=== PATIENT | male | born 1950 | race Caucasian/White ===

== ENCOUNTER 2024-01-16 09:01 | Inpatient (IN) | payer MEDICARE, MEDICAID ==
[~2024-01-16] VITALS: Ht 172.7 cm; Wt 74.4 kg
[2024-01-16] VITALS (23 sets, daily range): BP systolic 100–135; BP diastolic 65–83; PULSE 63–77; RESP 11–23; TEMP 36.974–37.16964; O2SAT 97–99
[2024-01-16 10:12] LABS: CLARITY URINE CLOUDY (CLEAR); COLOR URINE DARK YELLOW (YELLOW); GLUCOSE URINE 2+ (NEGATIVE); KETONES URINE TRACE (NEGATIVE); LEUKOCYTE ESTERASE URINE 2+ (NEGATIVE); NITRITE URINE POSITIVE (NEGATIVE); OCCULT BLOOD URINE 3+ (NEGATIVE); PH URINE 6.5 (4.5-8.0); PROTEIN URINE 2+ (NEGATIVE); SPECIFIC GRAVITY URINE 1.024 (1.005-1.030)
[2024-01-16 10:25] LABS: BACTERIA URINE 1+; RBC URINE 15-25 /hpf (0-2); SQUAMOUS EPITHELIAL CELL URINE NONE SEEN /lpf (RARE/1+); WBC URINE TNTC /hpf (0-2); YEAST URINE NONE SEEN
[2024-01-16] MEDS: ACETAMINOPHEN 325MG TABLET PO ONE (10:27)
[2024-01-16] MEDS: SODIUM CHLORIDE 0.9% 1000ML BAG (SEPSIS BOLUS) IV ONE (10:27)
[2024-01-16] MEDS: CEFTRIAXONE 1GM/50ML 50 ML IV ONE (10:28)
[2024-01-16 10:35] LABS: HEMATOCRIT. 38.2 % (42.0-52.0); HEMOGLOBIN. 13.3 g/dL (14.0-18.0); MEAN CORPUSCULAR HEMOGLOBIN 32.9 pg (28.0-32.0); MEAN CORPUSCULAR HGB CONC 34.7 g/dL (31.0-37.0); MEAN CORPUSCULAR VOLUME 94.7 fL (80.0-94.0); MEAN PLATELET VOLUME 7.4 fl (7.4-10.4); PLATELET 118 x1000/uL (130-400); RED BLOOD CELL COUNT 4.03 mill/uL (4.7-6.1); RED CELL DISTRIBUTION WIDTH 13.4 % (11.6-14.6)
[2024-01-16 10:38] LABS: CHLORIDE 100 mEq/L (98-107); POTASSIUM 3.1 mEq/L (3.5-5.1); SODIUM 134 mEq/L (136-145)
[2024-01-16 10:39] LABS: CALCIUM 9.1 mg/dL (8.7-10.4); CARBON DIOXIDE 25 mEq/L (21-32)
[2024-01-16 10:40] LABS: DIFFERENTIAL COMMENT 1
[2024-01-16 10:44] LABS: GLUCOSE 147 mg/dL (70-105); UREA NITROGEN BLOOD 15 mg/dL (9-23)
[2024-01-16 10:46] LABS: LACTIC ACID 2.4 mmol/L (0.4-2.0)
[2024-01-16 10:59] LABS: INR 1.1; PROTHROMBIN TIME 12.3 sec (9.6-11.0)
[2024-01-16 11:11] LABS: PLATELET ESTIMATE DECREASED
[2024-01-16] MEDS: POTASSIUM CHLORIDE 20MEQ TABLET SR PO ONE (11:50)
[2024-01-16] MEDS ORDERED: ACETAMINOPHEN 325MG TABLET PO PRN ×2 (12:45)
[2024-01-16] MEDS ORDERED: ONDANSETRON HCL 4MG/2ML INJ IV PRN (12:45)
[2024-01-16] MEDS ORDERED: CLONIDINE 0.1MG TABLET PO PRN (12:45)
[2024-01-16] MEDS ORDERED: MAGNESIUM/ALUMINUM HYDROXIDE/SIMETHICONE 30ML UDC PO PRN (12:45)
[2024-01-16] MEDS ORDERED: NITROGLYCERIN 0.4MG TABLET SL SL PRN (12:45)
[2024-01-16] MEDS ORDERED: IPRATROPIUM/ALBUTEROL 0.5-3(2.5)MG/3ML NEB NEB PRN (12:45)
[2024-01-16] MEDS ORDERED: GUAIFENESIN 200MG/10ML SUGAR FREE UDC PO PRN (12:45)
[2024-01-16] MEDS ORDERED: DOCUSATE SODIUM 100MG CAPSULE PO PRN (12:45)
[2024-01-16] MEDS: NOREPINEPHRINE 8MG/250ML PMX 250 ML IV ONE (13:00)
[2024-01-16] MEDS: PIPERACILLIN/TAZO 3.375G/50ML 50 ML IV STA (13:05)
[2024-01-16] MEDS ORDERED: MEROPENEM 1G/100ML 100 ML IV SCH (14:00)
[2024-01-16] MEDS: LACTATED RINGERS 1,400 ML IV ONE (14:00)
[2024-01-16] MEDS: VANCOMYCIN 1.5GM/250ML 250 ML IV SCH (14:33)
[2024-01-16] MEDS: POTASSIUM CHLORIDE 20MEQ TABLET SR PO NR (14:34)
[2024-01-16] MEDS: ZINC SULFATE 220 MG ( 50 ) CAPSULE PO SCH (14:35)
[2024-01-16 14:42] LABS: IRON 18 ug/dL (65-175)
[2024-01-16 14:43] LABS: TRIGLYCERIDE 56 mg/dL (0-150)
[2024-01-16 14:44] LABS: LDL CHOLESTEROL 37 mg/dL (5-100)
[2024-01-16 14:45] LABS: CHOLESTEROL 91 mg/dL (<200); CREATINE KINASE MB FRACTION 2.9 ng/mL (0.5-3.6); HDL CHOLESTEROL 42 mg/dL (>55); TOTAL IRON BINDING CAPACITY 292 ug/dl (250-425)
[2024-01-16 14:46] LABS: CREATINE KINASE 212 IU/L (46-171)
[2024-01-16 14:47] LABS: THYROID STIMULATING HORMONE 0.87 uIU/mL (0.55-4.78)
[2024-01-16 14:48] LABS: T4 FREE 1.18 ng/dL (0.89-1.76); VITAMIN B12 SERUM 1578 pg/mL (211-911)
[2024-01-16 14:49] LABS: *AMPHETAMINES SCREEN URINE NEGATIVE (NEGATIVE); *BARBITURATES SCREEN URINE NEGATIVE (NEGATIVE); *BENZODIAZEPINES SCREEN URINE NEGATIVE (NEGATIVE); *COCAINE SCREEN URINE NEGATIVE (NEGATIVE); METHADONE URINE SCREEN NEGATIVE (NEGATIVE); OPIATES URINE SCREEN NEGATIVE (NEGATIVE)
[2024-01-16 14:50] LABS: CANNABINOID URINE SCREEN NEGATIVE (NEGATIVE); ECSTASY MDMA SCREEN URINE NEGATIVE (NEGATIVE); PHENCYCLIDINE URINE SCREEN NEGATIVE (NEGATIVE)
[2024-01-16 15:09] LABS: TROPONIN I HIGH SENSITIVITY 120 ng/L (3.0-53)
[2024-01-16] MEDS ORDERED: DEXTROSE 50% WATER 50ML SYRINGE IV PRN (15:30)
[2024-01-16] MEDS: BLOOD SUGAR DIAGNOSTIC STRIP TEST SCH (17:00)
[2024-01-16] MEDS: INSULIN LISPRO 100 UNITS/ML SUBCUT SCH (18:20)
[2024-01-16] MEDS: LACTATED RINGERS 1,000 ML IV SCH (20:03)
[2024-01-16] MEDS: ASCORBIC ACID 500 MG TABLET PO SCH (20:05)
[2024-01-16] MEDS: ENOXAPARIN 40MG/0.4ML SYR SUBCUT SCH (20:05)
[2024-01-16] MEDS: ASPIRIN 325MG EC TABLET PO SCH (20:05)
[2024-01-16] MEDS: FAMOTIDINE 20MG TABLET PO SCH (20:05)
[2024-01-16] MEDS: MEROPENEM 1G/100ML 100 ML IV SCH (20:33)
[2024-01-16] MEDS ORDERED: ZOLPIDEM TARTRATE 5MG TABLET PO PRN (21:00)
[2024-01-16 22:36] LABS: CREATINE KINASE MB FRACTION 3.4 ng/mL (0.5-3.6)
[2024-01-17] VITALS (33 sets, daily range): BP systolic 93–131; BP diastolic 58–85; PULSE 54–78; RESP 9–27; TEMP 35.94732–37.11408; O2SAT 95–100
[2024-01-17 05:43] LABS: BASOPHILS % 0.3 % (0.0-2.0); EOSINOPHILS % 0.8 % (0.0-5.0); HEMOGLOBIN. 11.8 g/dL (14.0-18.0); LYMPHOCYTES % 12.8 % (20.0-50.0); MEAN CORPUSCULAR HEMOGLOBIN 32.8 pg (28.0-32.0); MEAN CORPUSCULAR HGB CONC 33.9 g/dL (31.0-37.0); MEAN CORPUSCULAR VOLUME 96.7 fL (80.0-94.0); MEAN PLATELET VOLUME 8.5 fl (7.4-10.4); MONOCYTES % 8.3 % (2.0-8.0); NEUTROPHILS % 77.8 % (40.0-76.0); PLATELET 102 x1000/uL (130-400); RED BLOOD CELL COUNT 3.62 mill/uL (4.7-6.1); RED CELL DISTRIBUTION WIDTH 13.6 % (11.6-14.6); WHITE BLOOD COUNT 7.6 x1000/uL (4.5-11.0)
[2024-01-17 05:52] LABS: CARBON DIOXIDE 24 mEq/L (21-32); CHLORIDE 108 mEq/L (98-107); POTASSIUM 3.8 mEq/L (3.5-5.1); SODIUM 136 mEq/L (136-145)
[2024-01-17 05:53] LABS: CALCIUM 8.6 mg/dL (8.7-10.4)
[2024-01-17 05:57] LABS: CREATININE 0.6 mg/dL (0.6-1.3); GLUCOSE 107 mg/dL (70-105)
[2024-01-17 05:58] LABS: UREA NITROGEN BLOOD 11 mg/dL (9-23)
[2024-01-17 05:59] LABS: ALANINE AMINOTRANSFERASE 26 IU/L (10-49); ASPARTATE AMINOTRANSFERASE 24 IU/L (<34)
[2024-01-17 06:00] LABS: ALBUMIN 3.4 g/dL (3.2-4.8); PHOSPHORUS 1.8 mg/dL (2.5-4.9); PROTEIN TOTAL 5.7 g/dL (6.0-8.3)
[2024-01-17] MEDS ORDERED: IOHEXOL-300 100 ML BOTTLE ONE (06:54)
[2024-01-17] MEDS: MAGNESIUM 2 G PREMIX 50 ML IV NR (09:37)
[2024-01-17] MEDS: VANCOMYCIN 750MG PREMIX 150 ML IV SCH (10:16)
[2024-01-17] MEDS: POTASSIUM PHOSPHATE 20 MMOL in DEXT 5% WATER 243.3333 ML IV NR (11:38)
[2024-01-17] MEDS: TAMSULOSIN HCL 0.4MG SR CAPSULE PO SCH (17:58)
[2024-01-18] VITALS: BP 127/56; PULSE 80; RESP 18; TEMP 37.00296; O2SAT 99
[2024-01-18 04:00] VITALS: BP 140/89; PULSE 66; RESP 17; TEMP 36.78072; O2SAT 100
[2024-01-18] MEDS: KETOROLAC 15MG/ML VIAL IV PRN (04:33)
[2024-01-18 08:10] VITALS: BP 138/85; PULSE 62; RESP 18; TEMP 36.78072; O2SAT 99
[2024-01-18 12:00] VITALS: BP 130/80; PULSE 80; RESP 18; TEMP 36.16956; O2SAT 99
[2024-01-18 16:00] VITALS: BP 139/58; PULSE 72; RESP 20; TEMP 37.16964; O2SAT 97
[2024-01-18 20:00] VITALS: BP 123/86; PULSE 78; RESP 20; TEMP 36.61404; O2SAT 95
[2024-01-19] VITALS: BP 137/79; PULSE 66; RESP 19; TEMP 36.44736; O2SAT 97
[2024-01-19 04:00] VITALS: BP 145/82; PULSE 55; RESP 19; TEMP 36.50292; O2SAT 98
[2024-01-19 08:00] VITALS: BP 130/86; PULSE 60; RESP 18; TEMP 36.50292; O2SAT 99
[2024-01-19 12:00] VITALS: BP 142/87; PULSE 66; RESP 18; TEMP 36.72516; O2SAT 98
[2024-01-19 16:00] VITALS: BP 113/88; PULSE 66; RESP 18; TEMP 36.50292; O2SAT 97
[2024-01-19 20:00] VITALS: BP 112/70; PULSE 64; RESP 16; TEMP 36.6696; O2SAT 95
[2024-01-19] MEDS: CEFAZOLIN 1000MG PREMIX 50 ML IV SCH (20:03)
[2024-01-20] VITALS: BP 133/85; PULSE 66; RESP 18; TEMP 36.44736; O2SAT 99
[2024-01-20 04:00] VITALS: BP 145/86; PULSE 68; RESP 16; TEMP 36.55848; O2SAT 99
[2024-01-20 08:00] VITALS: BP 150/89; PULSE 58; RESP 18; TEMP 36.16956; O2SAT 98
[2024-01-20] MEDS ORDERED: ZINC1CAP2 PO (10:51)
[2024-01-20] MEDS ORDERED: TAMS-11 PO (10:51)
[2024-01-20] MEDS ORDERED: CEPH500T MT (10:51)
[2024-01-20] MEDS ORDERED: ASPI-1406 MT (10:51)
[2024-01-20] MEDS ORDERED: ASCO500T20 PO (10:51)
[2024-01-20 16:00] VITALS: BP 113/87; PULSE 66; RESP 18; TEMP 36.50292; O2SAT 98
[2024-01-20 16:52] VITALS: BP 113/87; PULSE 66; TEMP 97.7; O2SAT 98
== END 2024-01-20 18:22 | disposition home health service (06) | DRG 871 ==
LOC: ER 09:01 → EDBEDREQ 11:20 → EDBEDREQTM 11:20 → EDBEDREQSVC 12:36 → EDBEDREQ 12:42 → MICUSO 19:05 → 8WST 01-17 13:52
PROVIDERS: ADMIT Internal Medicine; ATTEND Internal Medicine
DX: A41.9 Sepsis, unspecified organism (principal); I21.A1 Myocardial infarction type 2; R65.21 Severe sepsis with septic shock; N39.0 Urinary tract infection, site not specified; J98.11 Atelectasis; E87.6 Hypokalemia; E11.9 Type 2 diabetes mellitus without complications; D64.9 Anemia, unspecified; E78.00 Pure hypercholesterolemia, unspecified; I10 Essential (primary) hypertension; E83.42 Hypomagnesemia; I25.10 Atherosclerotic heart disease of native coronary artery without angina pectoris; N40.0 Benign prostatic hyperplasia without lower urinary tract symptoms; Z79.4 Long term (current) use of insulin; Z79.84 Long term (current) use of oral hypoglycemic drugs; Z87.440 Personal history of urinary (tract) infections; Z79.899 Other long term (current) drug therapy
CPT/HCPCS: 36415; 74177; 80048; 80053; 80061; 80202; 80305; 81003; 82550; 82553; 82607; 82746; 82962; 83036; 83540; 83550; 83605; 83735; 84100; 84145; 84439; 84443; 84484; 85025; 87077; 87186; 93005; 93306; 93970; 97166; 99291; J0690; J0696; J1650; J1815; J1885; J2185; J2543; J3370; J3475; J3490; J7030; J7060; Q9967

== ENCOUNTER 2025-04-30 17:59 | Emergency (ER) | payer MEDICARE, MEDICAID ==
[~2025-04-30] VITALS: Ht 162.6 cm; Wt 75.0 kg
[~2025-04-30 17:59] MED LIST: ASCO500T20 PO; ASPI-1406 MT; CEPH500T MT; TAMS-54 PO; ZINC1CAP2 PO
[2025-04-30 18:02] VITALS: O2SAT 98
[2025-04-30] MEDS ORDERED: ACYC-58 MT (19:59)
[2025-04-30] MEDS ORDERED: GABA-1180 MT (20:00)
[2025-04-30 20:12] VITALS: BP 138/78; PULSE 70; RESP 18; TEMP 36.7; O2SAT 98
== END 2025-04-30 20:14 | disposition home or self-care (01) ==
LOC: ER 17:59
DX: B02.9 Zoster without complications (principal); I10 Essential (primary) hypertension; E11.9 Type 2 diabetes mellitus without complications; E78.00 Pure hypercholesterolemia, unspecified; Z79.82 Long term (current) use of aspirin; Z79.899 Other long term (current) drug therapy
CPT/HCPCS: 99283